=== PATIENT | male | born 1930 | race Caucasian/White ===

== ENCOUNTER 2019-03-11 13:59 | Inpatient (IN) ==
--- NOTE | 2019-03-11 14:25 | Emergency Department Note ---
Weakness HPI - General Chief complaint: Weakness Stated complaint: Weakness, Confusion Time Seen by Provider: 03/11/19 14:13 Source: patient Mode of arrival: wheelchair Limitations: altered mental status, physical limitation - History of Present Illness HPI Narrative: Mr. Boone is a an 88-year-old who lives at home with his who has had developing weakness and confusion over the last 3 days. He has not felt well for about a week. He frequently or generally sleeps in a chair and has done so for 20 years according to his son. Apparently some ulcers are developed on his buttocks that his significant other has been treating him and trying to take care of at home. Patient is not very active. Reportedly had 84% on room air when he first arrives in a blood pressure of 127/30. Temperature 99.9 degrees. Pulse 89. He does not see a doctor very often and so there is a lack of information or history. His significant other is not currently present who is his usual caregiver. REVIEW OF SYSTEMS: Patient is almost mute when asked questions. Occasionally is able to respond. He can make eye contact but stares quite a bit away and looks towards his [id number] and does not answer many questions. He is sleepy quite a bit of the time as well. - Related Data Home Medications Medication Instructions Recorded Confirmed No Known Home Meds 03/11/19 03/11/19 Allergies Allergy/AdvReac Type Severity Reaction Status Date / Time No Known Drug Allergies Allergy Unverified 03/11/19 14:03 Past Medical History - Past Medical History Medical history: Reports: TIA. Denies: asthma, cancer (but has had elevated PSA around 12.), CAD (coronary artery disease), chronic anticoagulation, chronic narcotics, COPD, CVA, DM, hyperlipidemia, hypertension, pneumonia, renal disease Psychiatric history: Denies: anxiety, depression - Social History smoking status: Never smoker Alcohol use: Reports: None (quit 2017.) Drug use: Reports: none. Denies: marijuana Physical Exam Limitations: altered mental status, physical limitation General appearance: lethargic, obese, obtunded, sleepy, other (Eyes open with speaking to him and he occasionally will obey commands but not always.) Head: atraumatic, normocephalic Eye: Present: EOMI Neck: Present: trachea midline. Absent: lymphadenopathy, thyromegaly Chest: Present: symmetric chest wall rise Respiratory: Present: normal lung sounds bilaterally, other (Some poor respiratory effort and decrease breath excursions.). Absent: respiratory distress, wheezes, stridor, accessory muscle use, prolonged expiratory phase Cardiovascular: Present: regular rate, normal rhythm, systolic murmur. Absent: diastolic murmur Type of murmur: systolic (Soft early) Intensity of murmur: 1/6 Pitch of murmur: Medium Abdominal: Present: soft. Absent: distention, tenderness, guarding, rebound, rigidity, organomegaly, mass Extremities: Absent: pedal edema, pretibial edema Neurological: Present: other (Moves upper and lower extremities but only occasionally. Moves eyes and face but slow and lethargic.) Psychiatric: Present: flat affect, serious, poor eye contact. Absent: agitated, anxious Skin: Present: warm, dry, other (He has gluteal hyperkeratotic changes with folds and verruciform/coliform irregularities in step-off levels in the upper medial or middle level buttocks near the intergluteal cleft. Below these he has stage II breakdown of the skin with a small to medium size, approximately 1 inch diameter on the left with granulation tissue. He has a larger one on the right estimated diameter 1 and three-quarter inch that appears more dry centrally and seems to be fairly uniform but somewhat depressed. No tunneling or exudate is noted. In the central intergluteal cleft midline there is some skin breakdown with slight moisture and pink maceration. On the lower buttocks to very proximal thigh is a small breakdown about nickel size in diameter.) Course Vital Signs Temperature 99.9 F H 03/11/19 13:59 Pulse Rate 89 03/11/19 13:59 Respiratory Rate 28 H 03/11/19 13:59 Blood Pressure 127/30 03/11/19 13:59 Pulse Oximetry (%) 84 L 03/11/19 13:59 Temperature 98.9 F 03/11/19 19:42 Pulse Rate 83 03/11/19 19:42 Respiratory Rate 19 03/11/19 19:42 Blood Pressure 131/58 03/11/19 19:42 Pulse Oximetry (%) 95 03/11/19 19:42 Weakness - MDM Narrative Medical decision making narrative: 2:18 PM - this gentleman comes in accompanied by and son and [id number]. ( is actually significant other of many years). Because of low-grade fever, aggressive weakness and confusion, a rather complete work-up is needed including labs, EKG, imaging of the chest and possibly of the brain. Blood cultures are being obtained and antibiotics are being started quickly as he has Q's of a positive risk factors as well as this history. Limited healthcare visits in the past making some paucity of information. He has a he art murmur that is mild at the systolic. With the fever and if this were unknown, some increased risk for subacute bacterial endocarditis. 3:35 PM - hemoglobin comes back at 6.9. Digital rectal exam reveals no masses or nodules that but there is a large bolus of firm stool. Hemoccult is negative . Sphincter tone is mildly decreased. 4:35 PM - chest x-ray shows cardiomegaly but no specific CHF, pleural effusion or infiltrate. Because of his persistent obtundation that is still somewhat explained, CT scan of the head ordered. 5 PM - Crisostomo catheter with probe was placed and there was blood in his urine. Urine analysis is still pending per Patient has been given Zosyn and vancomycin. Patient has received over has had Protonix 80 mg IV as a bolus. Of note also has stool retention that was quite significant on digital rectal exam. 5:10 PM - spoke with Dr. Jett, hospitalist, who kindly accepts this patient in transfer. I will seek to speak with Dr. Davis, general surgeon for upper GI. I will speak with family regarding his CODE STATUS. A festinating physical finding is rather darkening of the Annette of his proximal nailbeds of all of his nails. This darkening is quite black/charcoal metz but does not involve all of the nails. 5:55 PM - telephone call from radiologist reports that patient's CT of the head demonstrates a small to moderate-sized hydrocephalus with fairly well dilated lateral and third ventricles. Fourth ventricle is normal in size. Consider consultation with neurosurgeon. Call out to neurosurgical for consultation. 6:34 PM - I spoke with neuro surgeon, Dr. Qiu, who is reassuring that the hydrocephalus can be worked up as an outpatient and there is no urgency over the next week or 2 for that to be done. - Lab Data Lab results reviewed: Yes I reviewed the patient's lab results. Result diagrams: 03/11/19 14:23 03/11/19 14:23 Lab Results 03/11/19 03/11/19 03/11/19 Range/Units 14:23 14:23 14:23 WBC 16.6 H (4.5-11.0) K/mcL RBC 2.74 L (4.50-5.90) M/mcL Hgb 6.9 L* (13.5-16.5) g/dL Hct 23.0 L (41.0-55.0) % MCV 83.8 (80.0-100.0) fL MCH 25.2 L (26.0-34.0) pg MCHC 30.0 L (31.0-36.0) g/dL RDW 18.0 H (11.5-14.5) % Plt Count 616 H (140-440) K/mcL MPV 8.0 (7.4-10.4) fL Total Counted 100 Seg Neutrophils % 77 (38-78) % Band Neutrophils % Not Reportable Lymphocytes % 17 (15-49) % Monocytes % (Manual) 5 (1-12) % Basophils % (Manual) 1 (0-2) % Nucleated RBCs 1 H (0-0) % Platelet Estimate Increased A (NORMAL) RBC Morphology Abnorm A (NORMAL) Polychromasia 1+ A (NONE SEEN) Hypochromasia 1+ A (NONE SEEN) Basophilic Stippling 1+ A (NONE SEEN) Anisocytosis 1+ A (NONE SEEN) Target Cells 1+ A (NONE SEEN) Helmet Cells Few A (NONE SEEN) ESR (0-15) mm/hr VBG Lactic Acid 3.9 H (0.5-2.0) mmol/L Sodium 146 H (133-145) mmol/L Potassium 4.8 (3.3-5.1) mmol/L Chloride 102 (96-108) mmol/L Carbon Dioxide 28 (22-30) mmol/L Anion Gap 16.0 (8-16) BUN 40 H (8-23) mg/dl Creatinine 1.7 H (0.7-1.2) mg/dl GFR Calculation 36 Glucose 143 H (70-105) mg/dL Calcium 9.7 (8.6-10.4) mg/dl Total Bilirubin 0.3 (0.0-1.0) mg/dL AST 85 H (0-37) U/l ALT 26 (0-40) U/l Alkaline Phosphatase 77 (39-117) U/L C-Reactive Protein (0.0-0.8) mg/dl Total Protein 8.1 (5.9-8.4) gm/dL Albumin 3.3 (3.2-5.2) gm/dL Globulin 4.8 H (2.2-3.7) gm/dL Albumin/Globulin Ratio 0.7 L (1.0-2.3) Procalcitonin (<0.10) ng/mL Urine Color Urine Appearance Urine pH (5.0-9.0) Ur Specific [place] (1.000-1.035) Urine Protein (NEG) mg/dL Urine Glucose (UA) (NEG) mg/dL Urine Ketones (NEG) mg/dL Urine Occult Blood (<0.03) mg/dL Urine Nitrate (NEG) Urine Bilirubin (NEG) mg/dL Urine Urobilinogen (NEG) mg/dL Ur Leukocyte Esterase (NEG) /uL Urine RBC (0-1) /hpf Urine WBC (0-4) /hpf Ur Squamous Epith Cells (0-4) /hpf Ur Transition Epith Cell (0-2) /hpf Urine Bacteria (0) /hpf Hyaline Casts (0-2) /lpf Urine Mucus (0) /hpf Ur Culture Indicated? 03/11/19 03/11/19 03/11/19 Range/Units 14:23 14:23 14:23 WBC (4.5-11.0) K/mcL RBC (4.50-5.90) M/mcL Hgb (13.5-16.5) g/dL Hct (41.0-55.0) % MCV (80.0-100.0) fL MCH (26.0-34.0) pg MCHC (31.0-36.0) g/dL RDW (11.5-14.5) % Plt Count (140-440) K/mcL MPV (7.4-10.4) fL Total Counted Seg Neutrophils % (38-78) % Band Neutrophils % Lymphocytes % (15-49) % Monocytes % (Manual) (1-12) % Basophils % (Manual) (0-2) % Nucleated RBCs (0-0) % Platelet Estimate (NORMAL) RBC Morphology (NORMAL) Polychromasia (NONE SEEN) Hypochromasia (NONE SEEN) Basophilic Stippling (NONE SEEN) Anisocytosis (NONE SEEN) Target Cells (NONE SEEN) Helmet Cells (NONE SEEN) ESR > 120 H (0-15) mm/hr VBG Lactic Acid (0.5-2.0) mmol/L Sodium (133-145) mmol/L Potassium (3.3-5.1) mmol/L Chloride (96-108) mmol/L Carbon Dioxide (22-30) mmol/L Anion Gap (8-16) BUN (8-23) mg/dl Creatinine (0.7-1.2) mg/dl GFR Calculation Glucose (70-105) mg/dL Calcium (8.6-10.4) mg/dl Total Bilirubin (0.0-1.0) mg/dL AST (0-37) U/l ALT (0-40) U/l Alkaline Phosphatase (39-117) U/L C-Reactive Protein 6.2 H (0.0-0.8) mg/dl Total Protein (5.9-8.4) gm/dL Albumin (3.2-5.2) gm/dL Globulin (2.2-3.7) gm/dL Albumin/Globulin Ratio (1.0-2.3) Procalcitonin 6.61 (<0.10) ng/mL Urine Color Urine Appearance Urine pH (5.0-9.0) Ur Specific [place] (1.000-1.035) Urine Protein (NEG) mg/dL Urine Glucose (UA) (NEG) mg/dL Urine Ketones (NEG) mg/dL Urine Occult Blood (<0.03) mg/dL Urine Nitrate (NEG) Urine Bilirubin (NEG) mg/dL Urine Urobilinogen (NEG) mg/dL Ur Leukocyte Esterase (NEG) /uL Urine RBC (0-1) /hpf Urine WBC (0-4) /hpf Ur Squamous Epith Cells (0-4) /hpf Ur Transition Epith Cell (0-2) /hpf Urine Bacteria (0) /hpf Hyaline Casts (0-2) /lpf Urine Mucus (0) /hpf Ur Culture Indicated? 03/11/19 Range/Units 16:00 WBC (4.5-11.0) K/mcL RBC (4.50-5.90) M/mcL Hgb (13.5-16.5) g/dL Hct (41.0-55.0) % MCV (80.0-100.0) fL MCH (26.0-34.0) pg MCHC (31.0-36.0) g/dL RDW (11.5-14.5) % Plt Count (140-440) K/mcL MPV (7.4-10.4) fL Total Counted Seg Neutrophils % (38-78) % Band Neutrophils % Lymphocytes % (15-49) % Monocytes % (Manual) (1-12) % Basophils % (Manual) (0-2) % Nucleated RBCs (0-0) % Platelet Estimate (NORMAL) RBC Morphology (NORMAL) Polychromasia (NONE SEEN) Hypochromasia (NONE SEEN) Basophilic Stippling (NONE SEEN) Anisocytosis (NONE SEEN) Target Cells (NONE SEEN) Helmet Cells (NONE SEEN) ESR (0-15) mm/hr VBG Lactic Acid (0.5-2.0) mmol/L Sodium (133-145) mmol/L Potassium (3.3-5.1) mmol/L Chloride (96-108) mmol/L Carbon Dioxide (22-30) mmol/L Anion Gap (8-16) BUN (8-23) mg/dl Creatinine (0.7-1.2) mg/dl GFR Calculation Glucose (70-105) mg/dL Calcium (8.6-10.4) mg/dl Total Bilirubin (0.0-1.0) mg/dL AST (0-37) U/l ALT (0-40) U/l Alkaline Phosphatase (39-117) U/L C-Reactive Protein (0.0-0.8) mg/dl Total Protein (5.9-8.4) gm/dL Albumin (3.2-5.2) gm/dL Globulin (2.2-3.7) gm/dL Albumin/Globulin Ratio (1.0-2.3) Procalcitonin (<0.10) ng/mL Urine Color Yellow Urine Appearance Clear Urine pH 5.0 (5.0-9.0) Ur Specific [place] 1.019 (1.000-1.035) Urine Protein 30 A (NEG) mg/dL Urine Glucose (UA) Negative (NEG) mg/dL Urine Ketones Neg (NEG) mg/dL Urine Occult Blood 0.2 A (<0.03) mg/dL Urine Nitrate Neg (NEG) Urine Bilirubin Neg (NEG) mg/dL Urine Urobilinogen Neg (NEG) mg/dL Ur Leukocyte Esterase 25 A (NEG) /uL Urine RBC 147 H (0-1) /hpf Urine WBC 11 H (0-4) /hpf Ur Squamous Epith Cells 0 (0-4) /hpf Ur Transition Epith Cell < 1 (0-2) /hpf Urine Bacteria Mod A (0) /hpf Hyaline Casts 6 H (0-2) /lpf Urine Mucus Few (0) /hpf Ur Culture Indicated? Yes - Radiology Data Radiology results reviewed: Yes I reviewed the patient's radiology results. - EKG Data EKG results narrative: No acute coronary syndrome findings. This ECG will be read by a cloth mercerizing supervisor. Disposition Pt seen by SERVER PROGRAMMER/PA only: No Clinical Impression: Hypochromic microcytic anemia, Elevated LFTs, Obtundation Sepsis Qualifiers: Sepsis type: sepsis due to unspecified organism Qualified Code(s): A41.9 - Sepsis, unspecified organism Decubitus ulcers Qualifiers: Pressure injury location: sacral region Pressure injury stage: stage 2 Qualified Code(s): L89.152 - Pressure ulcer of sacral region, stage 2 Obesity Qualifiers: Obesity type: unspecified obesity type Obesity classification: adult class 1 (BMI 30 - 34.9) Serious obesity comorbidity presence: unspecified whether seriou s comorbidity present Body mass index: BMI 32.0-32.9 Qualified Code(s): E66.9 - Obesity, unspecified Acute renal failure (ARF) Qualifiers: Acute renal failure type: unspecified Qualified Code(s): N17.9 - Acute kidney failure, unspecified Hydrocephalus Qualifiers: Hydrocephalus type: unspecified Qualified Code(s): G91.9 - Hydrocephalus, unspecified Disposition: Xfer As Inpt ([facility]) Condition: Serious
[2019-03-11] MEDS ORDERED: PIPERACILLIN SODIUM/TAZOBACTAM 3.375 GM in DEXTROSE 5% IN WATER 50 ML IV ONE (14:36)
[2019-03-11] MEDS ORDERED: 0.9 % SODIUM CHLORIDE 1,000 ML IV ONE ×2 (14:36→15:30)
--- NOTE | 2019-03-11 15:07 | XRay Report ---
HISTORY: Increased weakness and confusion FINDINGS: The heart is moderately enlarged but magnified by portable AP technique. There may be bands of atelectasis in both lung bases. There is no congestive heart failure or pleural effusion. No prior study is available for comparison. Mild arthritis is present in both shoulders and the thoracic spine. IMPRESSION: Cardiomegaly Interpreted and Authenticated by: Albert Wilson 03/11/19
[2019-03-11 15:34] LABS: Hemoglobin 6.9 g/dL (13.5-16.5); Mean Cell Volume 83.8 fL (80.0-100.0); Platelet Count 616 K/mcL (140-440); RBC 2.74 M/mcL (4.50-5.90); WBC 16.6 K/mcL (4.5-11.0)
[2019-03-11 15:35] LABS: ALT/SGPT 26 U/l (0-40); AST/SGOT 85 U/l (0-37); Albumin 3.3 gm/dL (3.2-5.2); Albumin/Globulin Ratio 0.7 (1.0-2.3); Alkaline Phosphatase 77 U/L (39-117); Bilirubin,Total 0.3 mg/dL (0.0-1.0); Blood Urea Nitrogen 40 mg/dl (8-23); Calcium 9.7 mg/dl (8.6-10.4); Carbon Dioxide 28 mmol/L (22-30); Chloride 102 mmol/L (96-108); Globulin 4.8 gm/dL (2.2-3.7); Glomerular Filtration Rate 36; Glucose 143 mg/dL (70-105); Potassium 4.8 mmol/L (3.3-5.1); Sodium 146 mmol/L (133-145)
[2019-03-11] MEDS ORDERED: VANCOMYCIN 1,000 MG in 0.9 % SODIUM CHLORIDE 250 ML IV ONE (15:44)
[2019-03-11] MEDS ORDERED: PANTOPRAZOLE 40 MG VIAL IV ONE (15:44)
[2019-03-11] MEDS ORDERED: 0.9 % SODIUM CHLORIDE 250 ML IV SCH (15:45)
[2019-03-11 16:00] LABS: Anisocytosis 1+ (NONE SEEN); Basophilic Stippling 1+ (NONE SEEN); Basophils % (Manual) 1 % (0-2); Helmet Cells FEW (NONE SEEN); Hypochromasia 1+ (NONE SEEN); Lymphocytes % 17 % (15-49); Monocytes % (Manual) 5 % (1-12); Nucleated Red Blood Cells 1 % (0-0); Platelet Estimate INCREASED (NORMAL); Polychromasia 1+ (NONE SEEN); RBC Morphology ABNORM (NORMAL); Segmented Neutrophils % 77 % (38-78); Target Cells 1+ (NONE SEEN)
[2019-03-11 16:57] LABS: Appearance,Urine CLEAR; Bacteria,Urine MOD /hpf (0); Bilirubin,Urine NEG (NEG); Color,Urine YELLOW; Culture Indicated,Urine YES; Glucose,Urine (UA) NEGATIVE (NEG); Ketones,Urine NEG (NEG); Leukocyte Esterase,Urine 25 /uL (NEG); Mucus,Urine FEW /hpf (0); Nitrate,Urine NEG (NEG); Protein,Urine 30 mg/dL (NEG); Specific Gravity,Urine 1.019 (1.000-1.035); Urine Blood 0.2 mg/dL (<0.03); Urine Hyaline Cast 6 /lpf (0-2); Urine RBC 147 /hpf (0-1); Urine Squamous Epithelial Cell 0 /hpf (0-4); Urine Transitional Epi Cells < 1 /hpf (0-2); Urine WBC 11 /hpf (0-4); Urobilinogen,Urine NEG (NEG)
--- NOTE | 2019-03-11 18:00 | Cat Scan Report ---
History: Obtunded and confused with peripheral weakness TECHNIQUE: The brain was imaged without contrast at 2.5 mm intervals. The radiation exposure was limited using dose reduction technology. FINDINGS: There is generalized cerebral atrophy with the greatest involvement in the frontal and temporal lobes. There is mild to moderate dilatation of the lateral and third ventricles. Fourth ventricle is normal in size. The ventricular dilatation is out of proportion to the atrophy. There is no transependymal reabsorption of CSF. There is no evidence of an infarct, hemorrhage or mass. No abnormal extra-axial fluid collection is present. IMPRESSION: Mild to moderate hydrocephalus which is out of proportion to the underlying cerebral atrophy. Dr. Gayle was called with the results Interpreted and Authenticated by: Albert Wilson 03/11/19
[2019-03-11] MEDS ORDERED: POTASSIUM CHLORIDE 20 MEQ PACKET PO PRN (19:43)
[2019-03-11] MEDS ORDERED: VANCOMYCIN PER PHARMACY IV SCH (19:43)
[2019-03-11] MEDS ORDERED: MAGNESIUM SULFATE 2 GM/50 ML BAG IV PRN (19:43)
[2019-03-11] MEDS ORDERED: ONDANSETRON 4 MG/2 ML VIAL IV PRN (19:43)
[2019-03-11] MEDS ORDERED: ACETAMINOPHEN 325 MG TABLET PO PRN (19:43)
--- NOTE | 2019-03-11 19:44 | Cat Scan Report ---
History: Abdominal distention, cardiomegaly, weakness and prostate cancer TECHNIQUE: The patient was imaged without oral or intravenous contrast from the thoracic inlet through the symphysis pubis. Sagittal and coronal reformats were created along with axial MIPS images of the chest. The radiation exposure was limited using dose reduction technology. CHEST: There are multiple small noncalcified pulmonary nodules in both lungs. The largest is located anteriorly left upper lobe and measures 6 mm. This is seen on axial image #43. There are bands of consolidated lung parenchyma centrally in the right upper lobe and in the lung bases. As may be atelectasis or scar. There are tiny bilateral layering pleural effusions. The heart is moderately enlarged. There are few scattered plaques in the coronary arteries are densely calcified plaques are present along the wall of normal caliber thoracic aorta. Abdomen and pelvis: Evaluation of the abdominal organs without contrast is limited. The liver appears normal in size and homogeneous. There are multiple splenules in the left upper quadrant. 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 The largest measures 3.4 cm. The gallbladder and bile ducts are normal. There is no evidence of a mass or inflammation the pancreas. The adrenals are normal and symmetric. There is a 5 x 6 cm exophytic simple cyst laterally in the upper pole of left kidney. A nonobstructing 2 x 3 mm stone is present in the lower pole calyx of the right kidney. There is no hydronephrosis in either kidney. There are pathologically enlarged lymph nodes in the retroperitoneum. Largest are located anterior to the inferior vena cava and measure up to 4 cm in size. Patient also has diffuse blastic bone metastasis replacing the body of L3. Small blastic lesions are present in the L2 vertebra. There is a Crisostomo catheter in the bladder. No discrete tumor is seen in the remaining portion of the prostate. There is circumferential thickening of the wall of the bladder. It measures up to 2.1 cm. The bowel pattern is normal without evidence of bowel obstruction. There is no ascites. 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 This could be due to chronic bladder outlet obstruction or transitional cell carcinoma. Several small pulmonary metastasis. Bands of atelectasis in both lungs Moderate cardiomegaly Dr. Jett was called with the results Interpreted and Authenticated by: Albert Wilson 03/11/19
[2019-03-11] MEDS: 0.9 % SODIUM CHLORIDE 1,000 ML IV SCH (20:35)
--- NOTE | 2019-03-11 20:44 | Internal Med History&Physical ---
Medical - H&P: HPI Patient information: Note initiated : 03/11/19 at 8:40 pm Service Date, if different from initiated Date: [] Patient: Gamal Boone a 88 y/o M admitted on 03/11/19 for Weakness, Confusion. Chief Complaint: [] Chief complaint: confusion, weakness History of present illness: Mr. Boone is a 88 year old M with a history of coronary artery disease/prostate cancer, CVA and COPD who presents to the ER with increasing weakness, confusion that has progressed over the last 3 days. Patient lives with his live-in partner Maile and son Henry was able to provide more information as he was brought in obtunded state. Patient associated low-grade fever but family denies productive cough, projectile vomiting, diarrhea. Endorses to bloody urine. He also has developed pressures sore on his bottom with the last few month. He has had significant loss of appetite and has been laying in bed lethargic and confused over the last 24 hours. Patient is arousable but unable to converse. Initial workup in the ER was consistent with hydrocephalus on CT had along with extensive metastatic disease involving lung, L2-L3 vertebrae and retroperitoneal lymph node of unknown primary. Elevated pro-calcitonin/white count/pyuria consistent with sepsis. Patient was started on broad antibiotic coverage. Subsequently hospitalist service consulted At the time of evaluation patient is fatigued and lethargic. Unable to provide history. Most of the history was obtained from patient's son Henry Boone, ER physician and medical records. Review of systems 10 point review of system was performed and is negative except as discussed above Medical - H&P: PMH Medical history: History of CVA COPD Prostate cancer CAD Chronic pain on narcotics DM type II Hyperlipidemia Hypertension Chronic kidney disease unknown stage Family history: reviewed and not pertinent Pertinent family history: Lives with his daughter Elizabeth cell phone [phone] Living partner aMile Son Henry Boone POA can be reached at [phone] Social history: Quit alcohol 17 No history of smoking Medical - H&P: Meds Home Medications Medication Instructions Recorded Confirmed Type No Known Home Meds 03/11/19 03/11/19 History Allergies Allergy/AdvReac Type Severity Reaction Status Date / Time No Known Drug Allergies Allergy Unverified 03/11/19 14:03 Medical - H&P: Exam - Constitutional Vitals: Temp Pulse Resp BP Pulse Ox 98.9 F 83 19 131/58 95 03/11/19 19:42 03/11/19 19:42 03/11/19 19:42 03/11/19 19:42 03/11/19 19:42 General appearance: average body habitus Exam: Obtunded, GCS 8 Head normocephalic No sclerae icterus, conjunctival pallor Oral cavity dry No ear discharge Irregular rhythm with bradycardia Diminished breath sounds bases Abdomen distended Lower extremity no cyanosis clubbing, lymphedema noted Decubitus ulcer buttocks-pictures ented in the chart Confused Neuro could not be examined Medical - H&P: Reslt - Labs CBC & Chem 7: 03/12/19 03:50 03/12/19 03:50 Labs: Short CBC 03/11/19 Range/Units 14:23 WBC 16.6 H (4.5-11.0) K/mcL Hgb 6.9 L* (13.5-16.5) g/dL Hct 23.0 L (41.0-55.0) % Plt Count 616 H (140-440) K/mcL BMP 03/11/19 14:23 Sodium 146 H Potassium 4.8 Chloride 102 Carbon Dioxide 28 BUN 40 H Creatinine 1.7 H Glucose 143 H Calcium 9.7 Liver Function 03/11/19 Range/Units 14:23 Total Bilirubin 0.3 (0.0-1.0) mg/dL AST 85 H (0-37) U/l ALT 26 (0-40) U/l Alkaline Phosphatase 77 (39-117) U/L Albumin 3.3 (3.2-5.2) gm/dL Urine 03/11/19 Range/Units 16:00 Urine Color Yellow Urine Appearance Clear Urine pH 5.0 (5.0-9.0) Ur Specific [place] 1.019 (1.000-1.035) Urine Protein 30 A (NEG) mg/dL Urine Glucose (UA) Negative (NEG) mg/dL Medical - H&P: A/P (1) Change in mental status Current visit: Yes Status: Acute * Acute change in mental status-secondary to sepsis end organ dysfunction/hydrocephalus * Sepsis-continue management per guidelines with orozco cultures, lactate trending, broad antibiotics and pressors if indicated * Complicated UTI-broad antibiotic coverage. De-escalate based on culture sensitivities * Decubitus ulcer likely source for sepsis. Continue wound care/offloading. Pictures documented in chart. 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 Currently on monitoring manager, atropine if symptomatic * Moderate hydrocephalus-neurosurgery recommends follow-up as outpatient on discharge is no acute intervention indicated * Acute blood loss anemia-IV PPI/2 units PRBC transfusion/surgery consult for endoscopy. Serial hemoglobin * Acute on chronic kidney failure-avoid nephrotoxins/monitor creatinine. Likely secondary to sepsis end organ dysfunction * Metastatic cancer of unknown etiology * History of prostate cancer * Prophylaxis heparin * DNR Plan * Inpatient admission. Anticipate minimum 2 midnight hospitalization * Close hemodynamic monitoring * Broad antibiotic coverage * PPI/2 units PRBC/hemoglobin * Monitor renal function * Pre-existing medical condition management on home meds
[2019-03-11] MEDS: HEPARIN 5,000 UNIT/ML VIAL SQ SCH (22:46)
[2019-03-11] MEDS: SENNOSIDES/DOCUSATE SODIUM 1 TAB TABLET PO SCH (22:47)
[2019-03-11] MEDS: DOCUSATE SODIUM 100 MG CAPSULE PO SCH (22:47)
[2019-03-11] MEDS: 0.9 % SODIUM CHLORIDE 10 ML SYRINGE IV SCH (22:48)
[2019-03-11] MEDS: PIPERACILLIN SODIUM/TAZOBACTAM 3.375 GM in DEXTROSE 5% IN WATER 50 ML IV SCH (23:58)
[2019-03-12] MEDS: ACETAMINOPHEN 1,000 MG/100 ML BOTTLE IV PRN ×2 (03:22→22:52)
[2019-03-12] MEDS: PIPERACILLIN SODIUM/TAZOBACTAM 3.375 GM in DEXTROSE 5% IN WATER 50 ML IV SCH ×3 (05:56→17:59)
[2019-03-12] MEDS: 0.9 % SODIUM CHLORIDE 10 ML SYRINGE IV SCH ×3 (05:57→22:49)
[2019-03-12 06:28] LABS: ALT/SGPT 25 U/l (0-40); AST/SGOT 87 U/l (0-37); Albumin 2.6 gm/dL (3.2-5.2); Albumin/Globulin Ratio 0.5 (1.0-2.3); Alkaline Phosphatase 73 U/L (39-117); Bilirubin,Direct < 0.2 mg/dL (0.0-0.3); Bilirubin,Total 0.4 mg/dL (0.0-1.0); Blood Urea Nitrogen 32 mg/dl (8-23); Calcium 8.8 mg/dl (8.6-10.4); Carbon Dioxide 22 mmol/L (22-30); Chloride 107 mmol/L (96-108); Gamma Glutamyl Transpeptidase 61 U/L (8-61); Glomerular Filtration Rate 38; Glucose 88 mg/dL (70-105); Lactate Dehydrogenase 474 U/L (94-250); Magnesium 2.7 mg/dL (1.6-2.5); Phosphorous 5.6 mg/dL (2.7-4.5); Potassium 5.6 mmol/L (3.3-5.1); Sodium 144 mmol/L (133-145); Triglycerides 140 mg/dl (<150); Uric Acid 7.9 mg/dL (2.5-8.0)
[2019-03-12 06:43] LABS: Hematocrit 28.9 % (41.0-55.0); Hemoglobin 8.9 g/dL (13.5-16.5); Mean Platelet Volume 8.2 fL (7.4-10.4); Platelet Count 507 K/mcL (140-440); RBC 3.36 M/mcL (4.50-5.90); Red Cell Distribution Width 17.3 % (11.5-14.5); WBC 17.3 K/mcL (4.5-11.0)
[2019-03-12 09:14] LABS: Anisocytosis 1+ (NONE SEEN); Eosinophils % (Manual) 1 % (0-7); Lymphocytes % 23 % (15-49); Monocytes % (Manual) 6 % (1-12); Nucleated Red Blood Cells 2 % (0-0); Platelet Estimate INCREASED (NORMAL); Polychromasia 1+ (NONE SEEN); RBC Morphology ABNORM (NORMAL); Rouleaux PRESENT (NONE SEEN); Segmented Neutrophils % 70 % (38-78)
[2019-03-12] MEDS: VANCOMYCIN 1,500 MG in 0.9 % SODIUM CHLORIDE 500 ML IV SCH (10:00)
[2019-03-12] MEDS: HEPARIN 5,000 UNIT/ML VIAL SQ SCH ×2 (11:07→22:53)
[2019-03-12] MEDS: DOCUSATE SODIUM 100 MG CAPSULE PO SCH ×2 (11:07→22:49)
--- NOTE | 2019-03-12 11:50 | Internal Med Progress Note ---
Medical - PN: Subj Patient information: Note initiated : 03/12/19 at 11:47 am Service Date, if different from initiated Date: [] Patient: Gamal Boone a 88 y/o M admitted on 03/11/19 for Weakness, Confusion. Chief Complaint: [] Interval history: Mr. Boone is a 88 year old M with a history of coronary artery disease/prostate cancer, CVA and COPD who presents to the ER with increasing weakness, confusion that has progressed over the last 3 days. Patient lives with his live-in partner Maile and son Henry was able to provide more information as he was brought in obtunded state. Patient associated low-grade fever but family denies productive cough, projectile vomiting, diarrhea. Endorses to bloody urine. He also has developed pressures sore on his bottom with the last few month. He has had significant loss of appetite and has been laying in bed lethargic and confused over the last 24 hours. Patient is arousable but unable to converse. Initial workup in the ER was consistent with hydrocephalus on CT had along with extensive metastatic disease involving lung, L2-L3 vertebrae and retroperitoneal lymph node of unknown primary. Elevated pro-calcitonin/white count/pyuria consistent with sepsis. Patient was started on broad antibiotic coverage. Subsequently hospitalist service consulted At the time of evaluation patient is fatigued and lethargic. Unable to provide history. Most of the history was obtained from patient's son Henry Boone, ER physician and medical records. 03/12-patient with pains obtunded. No responsive. No telemetry events except for occasional bradycardia. Son Henry and live-in partner Maile expresses desire to transition to comfort care for end-of-life care after reviewing patient's clinical status. Await decision. White count worsening and 17.3. He will need 0.9 status post 2 units blood transfusion. Family refuses upper endoscopy on aggressive interventions. Potassium 5.6. On antibiotic coverage. Patient critically ill with high risk mortality in the setting of metastatic cancer/decubitus ulcer/sepsis. Family aware aware of grim prognosis. - Constitutional Vitals: Vital Signs Temp Pulse Resp BP Pulse Ox 98.3 F 76 26 H 128/54 96 03/12/19 08:02 03/12/19 08:02 03/12/19 08:02 03/12/19 08:02 03/12/19 08:02 Period Temp Pulse Resp BP Sys/Patel Pulse Ox Last 24 Hr 98.1 F-99.9 F 37-93 7-46 93-184/30-161 84-100 Intake and Output 03/11/19 03/12/19 03/12/19 21:59 05:59 13:59 Intake Total 2300 50 50 Output Total 900 350 Balance 1400 -300 50 Weight 218 lb 8 oz Intake & Output: Intake & Output 03/11/19 03/12/19 03/12/19 21:59 05:59 13:59 Intake Total 2300 50 50 Output Total 900 350 Balance 1400 -300 50 Weight 218 lb 8 oz Intake: IV 2300 50 50 Sodium Chloride 0.9% 1,000 ml @ 2000 Wide Open IV BOLUS ONE Rx#: [id number] Zosyn 3.375 gm In Dextrose 5% 50 50 50 in Water 50 ml @ 100 mls/hr IV Q6H [facility] Rx#:[id number] Vancomycin 1,000 mg In Sodium 250 Chloride 0.9% 250 ml @ 250 mls/ hr IV ONCE ONE Rx#:[id number] Output: Urine Catheter Amount 350 Void Amount 900 Temp-Probe Crisostomo 900 Other: Urine Appearance Small Blood Clots Temp-Probe Crisostomo Hematuria Clear Large Blood Clots Hematuria Small Blood Clots Urine Color Dark Yellow Temp-Probe Crisostomo Straw Bright Yellow General appearance: no acute distress Exam: Remains obtunded Telemetry tachybradycardia regular rhythm Diminished breath sounds bases No lymphedema Medical - PN: Obj Da - Labs CBC & Chem 7: 03/12/19 03:50 03/12/19 03:50 Labs: Abnormal Lab Results 03/12/19 03/12/19 03/11/19 03:50 03:50 16:00 WBC 17.3 H RBC 3.36 L Hgb 8.9 L Hct 28.9 L MCH MCHC RDW 17.3 H Plt Count 507 H Nucleated RBCs 2 H Platelet Estimate Increased A RBC Morphology Abnorm A Polychromasia 1+ A Hypochromasia Basophilic Stippling Anisocytosis 1+ A Target Cells Helmet Cells Rouleaux Present A ESR VBG Lactic Acid Sodium Potassium 5.6 H BUN 32 H Creatinine 1.6 H Glucose Phosphorus 5.6 H Magnesium 2.7 H AST 87 H Lactate Dehydrogenase 474 H C-Reactive Protein Albumin 2.6 L Globulin 5.0 H Albumin/Globulin Ratio 0.5 L Urine Protein 30 A Urine Occult Blood 0.2 A Ur Leukocyte Esterase 25 A Urine RBC 147 H Urine WBC 11 H Urine Bacteria Mod A Hyaline Casts 6 H 03/11/19 03/11/19 03/11/19 14:23 14:23 14:23 WBC RBC Hgb Hct MCH MCHC RDW Plt Count Nucleated RBCs Platelet Estimate RBC Morphology Polychromasia Hypochromasia Basophilic Stippling Anisocytosis Target Cells Helmet Cells Rouleaux ESR > 120 H VBG Lactic Acid 3.9 H Sodium Potassium BUN Creatinine Glucose Phosphorus Magnesium AST Lactate Dehydrogenase C-Reactive Protein 6.2 H Albumin Globulin Albumin/Globulin Ratio Urine Protein Urine Occult Blood Ur Leukocyte Esterase Urine RBC Urine WBC Urine Bacteria Hyaline Casts 03/11/19 03/11/19 14:23 14:23 WBC 16.6 H RBC 2.74 L Hgb 6.9 L* Hct 23.0 L MCH 25.2 L MCHC 30.0 L RDW 18.0 H Plt Count 616 H Nucleated RBCs 1 H Platelet Estimate Increased A RBC Morphology Abnorm A Polychromasia 1+ A Hypochromasia 1+ A Basophilic Stippling 1+ A Anisocytosis 1+ A Target Cells 1+ A Helmet Cells Few A Rouleaux ESR VBG Lactic Acid Sodium 146 H Potassium BUN 40 H Creatinine 1.7 H Glucose 143 H Phosphorus Magnesium AST 85 H Lactate Dehydrogenase C-Reactive Protein Albumin Globulin 4.8 H Albumin/Globulin Ratio 0.7 L Urine Protein Urine Occult Blood Ur Leukocyte Esterase Urine RBC Urine WBC Urine Bacteria Hyaline Casts Meds: Medications Acetaminophen (Tylenol) 650 mg PO Q4-6HP PRN PRN Reason: PAIN/FEVER > 101 Docusate Sodium (Colace) 100 mg PO BID [facility] Last Admin: 03/12/19 11:07 Dose: Not Given Documented by: Heparin Sodium (Porcine) (Heparin) 5,000 unit SQ Q12 [facility] Last Admin: 03/12/19 11:07 Dose: 5,000 unit Documented by: Magnesium Sulfate (Magnesium Sulfate) 2 gm in 50 mls @ 50 mls/hr IV UD PRN PRN Reason: MG = or < 1.7 Sodium Chloride (Sodium Chloride 0.9%) 1,000 mls @ 50 mls/hr IV .Q20H [facility] Stop: 03/14/19 07:42 Last Admin: 03/11/19 20:35 Dose: 50 mls/hr Documented by: Acetaminophen (Ofirmev) 1,000 mg in 100 mls @ 200 mls/hr IV Q6HP PRN PRN Reason: PAIN/FEVER > 101 Last Admin: 03/12/19 03:22 Dose: 200 mls/hr Documented by: Piperacillin Sod/Tazobactam (Sod 3.375 gm/ Dextrose) 50 mls @ 100 mls/hr IV Q6H ED; Protocol Last Infusion: 03/12/19 11:11 Dose: Infused Documented by: Vancomycin HCl 1,500 mg/ (Sodium Chloride) 500 mls @ 333.3 mls/hr IV Q24H ED Ondansetron HCl (Zofran) 4 mg IV Q4-6HP PRN PRN Reason: Nausea And Vomiting Potassium Chloride (Klor-Con) 40 meq PO DAILYP PRN PRN Reason: K+ < 3.5 Senna/Docusate Sodium (Senna Plus Tablet) 1 tab PO HS [facility] Last Admin: 03/11/19 22:47 Dose: Not Given Documented by: Sodium Chloride (Saline Flush) 10 ml IV Q8 ED Last Admin: 03/12/19 05:57 Dose: Not Given Documented by: Vancomycin HCl (Vancomycin Per Pharmacy) 1 order IV UD [facility]; Protocol Medical - PN: A/P - Time Spent With Patient Total time spent is greater than 50% in coordination of care (as documented) at patient's floor/unit and/or counseling patient: 25 - 35 minutes (1) Change in mental status Status: Acute Assessment and plan: * Acute change in mental status-patient remains obtunded with no significant improvement. Underlying hydrocephalus/sepsis end organ manifestation. * Sepsis-worsening leukocytosis at 17,300 likely source dangerous also/UTI. Continue antibiotic coverage. * Complicated UTI- on antibiotic coverage * Decubitus ulcer -Continue wound care/offloading. Pictures documented in chart. * Acute blood loss anemia-continue IV PPI/hemoglobin 8.9 status post 2 units PRBC transfusion/family refusing endoscopy evaluation. Discontinue serial hemoglobin * Tachybradycardia syndrome-patient POA son wants DNR. Currently on surveillance system monitor, atropine if symptomatic * Hydrocephalus-neurosurgery recommends follow-up as outpatient on discharge is no acute intervention indicated * Acute on chronic kidney failure-avoid nephrotoxins/monitor creatinine. Likely secondary to sepsis end organ dysfunction * Metastatic cancer of unknown etiology * History of prostate cancer * Prophylaxis heparin * DNR Plan * Await family recommendations for transition to comfort care * Continue antibiotic coverage * Wound care/offloadingn * Pre-existing medical condition management on home meds * Case management to coordinate SNF transfer for end of life care Current Visit: Yes
[2019-03-12] MEDS: 0.9 % SODIUM CHLORIDE 1,000 ML IV SCH (15:53)
[2019-03-12] MEDS: SENNOSIDES/DOCUSATE SODIUM 1 TAB TABLET PO SCH (22:49)
[2019-03-13] MEDS: PIPERACILLIN SODIUM/TAZOBACTAM 3.375 GM in DEXTROSE 5% IN WATER 50 ML IV SCH ×3 (00:31→14:35)
[2019-03-13] MEDS: 0.9 % SODIUM CHLORIDE 10 ML SYRINGE IV SCH (05:52)
[2019-03-13 06:40] LABS: Hematocrit 31.6 % (41.0-55.0); Hemoglobin 9.7 g/dL (13.5-16.5); Mean Cell Volume 86.9 fL (80.0-100.0); Mean Corpuscular HGB Conc 30.7 g/dL (31.0-36.0); Mean Platelet Volume 8.7 fL (7.4-10.4); Platelet Count 509 K/mcL (140-440); RBC 3.64 M/mcL (4.50-5.90); Red Cell Distribution Width 16.9 % (11.5-14.5); WBC 19.4 K/mcL (4.5-11.0)
[2019-03-13] MEDS: DOCUSATE SODIUM 100 MG CAPSULE PO SCH (07:10)
[2019-03-13 07:11] LABS: ALT/SGPT 23 U/l (0-40); AST/SGOT 60 U/l (0-37); Albumin 2.9 gm/dL (3.2-5.2); Albumin/Globulin Ratio 0.6 (1.0-2.3); Alkaline Phosphatase 75 U/L (39-117); Bilirubin,Direct < 0.2 mg/dL (0.0-0.3); Bilirubin,Total 0.3 mg/dL (0.0-1.0); Blood Urea Nitrogen 29 mg/dl (8-23); Calcium 8.5 mg/dl (8.6-10.4); Carbon Dioxide 23 mmol/L (22-30); Chloride 110 mmol/L (96-108); Gamma Glutamyl Transpeptidase 70 U/L (8-61); Globulin 5.1 gm/dL (2.2-3.7); Glomerular Filtration Rate 33; Glucose 66 mg/dL (70-105); Lactate Dehydrogenase 384 U/L (94-250); Magnesium 2.8 mg/dL (1.6-2.5); Sodium 150 mmol/L (133-145); Triglycerides 148 mg/dl (<150); Uric Acid 8.1 mg/dL (2.5-8.0)
[2019-03-13 07:53] LABS: Anisocytosis 1+ (NONE SEEN); Hypochromasia 1+ (NONE SEEN); Lymphocytes % 32 % (15-49); Monocytes % (Manual) 9 % (1-12); Nucleated Red Blood Cells 3 % (0-0); Platelet Estimate INCREASED (NORMAL); Poikilocytosis 1+ (NONE SEEN); RBC Morphology ABNORM (NORMAL); Segmented Neutrophils % 59 % (38-78)
[2019-03-13] MEDS ORDERED: DEXTROSE 5%-1/2NS 1,000 ML IV SCH (08:30)
[2019-03-13] MEDS: VANCOMYCIN 1,500 MG in 0.9 % SODIUM CHLORIDE 500 ML IV SCH (10:00)
[2019-03-13] MEDS: HEPARIN 5,000 UNIT/ML VIAL SQ SCH (10:07)
--- NOTE | 2019-03-13 11:14 | Internal Med Progress Note ---
Medical - PN: Subj Patient information: Note initiated : 03/13/19 at 11:11 am Service Date, if different from initiated Date: [] Patient: Gamal Boone a 88 y/o M admitted on 03/11/19 for Weakness, Confusion. Chief Complaint: [] Interval history: Mr. Boone is a 88 year old M with a history of coronary artery disease/prostate cancer, CVA and COPD who presents to the ER with increasing weakness, confusion that has progressed over the last 3 days. Patient lives with his live-in partner Maile and son Henry was able to provide more information as he was brought in obtunded state. Patient associated low-grade fever but family denies productive cough, projectile vomiting, diarrhea. Endorses to bloody urine. He also has developed pressures sore on his bottom with the last few month. He has had significant loss of appetite and has been laying in bed lethargic and confused over the last 24 hours. Patient is arousable but unable to converse. Initial workup in the ER was consistent with hydrocephalus on CT had along with extensive metastatic disease involving lung, L2-L3 vertebrae and retroperitoneal lymph node of unknown primary. Elevated pro-calcitonin/white count/pyuria consistent with sepsis. Patient was started on broad antibiotic coverage. Subsequently hospitalist service consulted At the time of evaluation patient is fatigued and lethargic. Unable to provide history. Most of the history was obtained from patient's son Henry Boone, ER physician and medical records. 03/12-patient with pains obtunded. No responsive. No telemetry events except for occasional bradycardia. Son Henry and live-in partner Maile expresses desire to transition to comfort care for end-of-life care after reviewing patient's clinical status. Await decision. White count worsening and 17.3. He will need 0.9 status post 2 units blood transfusion. Family refuses upper endoscopy on aggressive interventions. Potassium 5.6. On antibiotic coverage. Patient critically ill with high risk mortality in the setting of metastatic cancer/decubitus ulcer/sepsis. Family aware aware of grim prognosis. 03/13- patient remains critically ill. Worsening leukocytosis. Mental status remains obtunded. White count 19.4. Hemoglobin 9.7, sodium 150. Multiple family discussions over the last 48 hours. Family contemplating hospice. Await final decision. Overall prognosis is extremely poor in the setting of me tastatic cancer, severe sepsis with hypoxic respiratory failure, infected stage III decubitus ulcer and other multiple comorbidities. Family aware and understanding of patient's status. No overnight fever chills. Remains unresponsive - Constitutional Vitals: Vital Signs Temp Pulse Resp BP Pulse Ox 99.0 F 80 11 L 141/44 94 03/13/19 04:01 03/13/19 04:01 03/13/19 02:01 03/13/19 04:01 03/13/19 04:01 Period Temp Pulse Resp BP Sys/Patel Pulse Ox Last 24 Hr 98.9 F-100.2 F 80-87 0-34 107-141/38-98 90-99 Intake and Output 03/12/19 03/13/19 03/13/19 21:59 05:59 13:59 Intake Total 965 850 Output Total 700 950 Balance 265 -100 Weight 213 lb 3.2 oz Intake & Output: Intake & Output 03/12/19 03/13/19 03/13/19 21:59 05:59 13:59 Intake Total 965 850 Output Total 700 950 Balance 265 -100 Weight 213 lb 3.2 oz Intake: IV 965 850 Sodium Chloride 0.9% 1,000 ml @ 965 50 mls/hr IV .Q20H ED Rx#: [id number] Zosyn 3.375 gm In Dextrose 5% 150 in Water 50 ml @ 100 mls/hr IV Q6H ED Rx#:[id number] Vancomycin 1,500 mg In Sodium 500 Chloride 0.9% 500 ml @ 333.3 mls/hr IV Q24H ED Rx#: [id number] Output: Urine Catheter Amount 700 950 Other: Urine Appearance Sediment Temp-Probe Crisostomo Cloudy Urine Color Temp-Probe Crisostomo Straw General appearance: no acute distress Exam: Unresponsive state No telemetry events Foleys draining cloudy urine Stage III pressure ulcer On 2 L oxygen Medical - PN: Obj Da - Labs CBC & Chem 7: 03/13/19 03:35 03/13/19 03:35 Labs: Abnormal Lab Results 03/13/19 03/13/19 03/12/19 03:35 03:35 03:50 WBC 19.4 H RBC 3.64 L Hgb 9.7 L Hct 31.6 L MCH MCHC 30.7 L RDW 16.9 H Plt Count 509 H Nucleated RBCs 3 H Platelet Estimate Increased A RBC Morphology Abnorm A Polychromasia Hypochromasia 1+ A Poikilocytosis 1+ A Basophilic Stippling Anisocytosis 1+ A Target Cells Helmet Cells Rouleaux ESR VBG Lactic Acid Sodium 150 H Potassium 5.6 H Chloride 110 H Anion Gap 17.0 H BUN 29 H 32 H Creatinine 1.8 H 1.6 H Glucose 66 L Uric Acid 8.1 H Calcium 8.5 L Phosphorus 5.0 H 5.6 H Magnesium 2.8 H 2.7 H GGT 70 H AST 60 H 87 H Lactate Dehydrogenase 384 H 474 H C-Reactive Protein Albumin 2.9 L 2.6 L Globulin 5.1 H 5.0 H Albumin/Globulin Ratio 0.6 L 0.5 L Urine Protein Urine Occult Blood Ur Leukocyte Esterase Urine RBC Urine WBC Urine Bacteria Hyaline Casts 03/12/19 03/11/19 03/11/19 03:50 16:00 14:23 WBC 17.3 H RBC 3.36 L Hgb 8.9 L Hct 28.9 L MCH MCHC RDW 17.3 H Plt Count 507 H Nucleated RBCs 2 H Platelet Estimate Increased A RBC Morphology Abnorm A Polychromasia 1+ A Hypochromasia Poikilocytosis Basophilic Stippling Anisocytosis 1+ A Target Cells Helmet Cells Rouleaux Present A ESR VBG Lactic Acid Sodium Potassium Chloride Anion Gap BUN Creatinine Glucose Uric Acid Calcium Phosphorus Magnesium GGT AST Lactate Dehydrogenase C-Reactive Protein 6.2 H Albumin Globulin Albumin/Globulin Ratio Urine Protein 30 A Urine Occult Blood 0.2 A Ur Leukocyte Esterase 25 A Urine RBC 147 H Urine WBC 11 H Urine Bacteria Mod A Hyaline Casts 6 H 03/11/19 03/11/19 03/11/19 14:23 14:23 14:23 WBC RBC Hgb Hct MCH MCHC RDW Plt Count Nucleated RBCs Platelet Estimate RBC Morphology Polychromasia Hypochromasia Poikilocytosis Basophilic Stippling Anisocytosis Target Cells Helmet Cells Rouleaux ESR > 120 H VBG Lactic Acid 3.9 H Sodium 146 H Potassium Chloride Anion Gap BUN 40 H Creatinine 1.7 H Glucose 143 H Uric Acid Calcium Phosphorus Magnesium GGT AST 85 H Lactate Dehydrogenase C-Reactive Protein Albumin Globulin 4.8 H Albumin/Globulin Ratio 0.7 L Urine Protein Urine Occult Blood Ur Leukocyte Esterase Urine RBC Urine WBC Urine Bacteria Hyaline Casts 03/11/19 14:23 WBC 16.6 H RBC 2.74 L Hgb 6.9 L* Hct 23.0 L MCH 25.2 L MCHC 30.0 L RDW 18.0 H Plt Count 616 H Nucleated RBCs 1 H Platelet Estimate Increased A RBC Morphology Abnorm A Polychromasia 1+ A Hypochromasia 1+ A Poikilocytosis Basophilic Stippling 1+ A Anisocytosis 1+ A Target Cells 1+ A Helmet Cells Few A Rouleaux ESR VBG Lactic Acid Sodium Potassium Chloride Anion Gap BUN Creatinine Glucose Uric Acid Calcium Phosphorus Magnesium GGT AST Lactate Dehydrogenase C-Reactive Protein Albumin Globulin Albumin/Globulin Ratio Urine Protein Urine Occult Blood Ur Leukocyte Esterase Urine RBC Urine WBC Urine Bacteria Hyaline Casts Meds: Medications Acetaminophen (Tylenol) 650 mg PO Q4-6HP PRN PRN Reason: PAIN/FEVER > 101 Docusate Sodium (Colace) 100 mg PO BID [facility] Last Admin: 03/13/19 07:10 Dose: Not Given Documented by: Heparin Sodium (Porcine) (Heparin) 5,000 unit SQ Q12 [facility] Last Admin: 03/13/19 10:07 Dose: 5,000 unit Documented by: Magnesium Sulfate (Magnesium Sulfate) 2 gm in 50 mls @ 50 mls/hr IV UD PRN PRN Reason: MG = or < 1.7 Acetaminophen (Ofirmev) 1,000 mg in 100 mls @ 200 mls/hr IV Q6HP PRN PRN Reason: PAIN/FEVER > 101 Last Infusion: 03/13/19 00:31 Dose: Infused Documented by: Piperacillin Sod/Tazobactam (Sod 3.375 gm/ Dextrose) 50 mls @ 100 mls/hr IV Q6H [facility]; Protocol Last Infusion: 03/13/19 05:54 Dose: Infused Documented by: Vancomycin HCl 1,500 mg/ (Sodium Chloride) 500 mls @ 333.3 mls/hr IV Q24H [facility] Last Infusion: 03/12/19 22:48 Dose: Infused Documented by: Dextrose/Sodium Chloride (Dextrose 5%-1/2ns Iv Solution) 1,000 mls @ 50 mls/hr IV .Q20H [facility] Stop: 03/15/19 00:29 Last Admin: 03/13/19 10:02 Dose: 50 mls/hr Documented by: Ondansetron HCl (Zofran) 4 mg IV Q4-6HP PRN PRN Reason: Nausea And Vomiting Potassium Chloride (Klor-Con) 40 meq PO DAILYP PRN PRN Reason: K+ < 3.5 Senna/Docusate Sodium (Senna Plus Tablet) 1 tab PO HS [facility] Last Admin: 03/12/19 22:49 Dose: Not Given Documented by: Sodium Chloride (Saline Flush) 10 ml IV Q8 [facility] Last Admin: 03/13/19 05:52 Dose: Not Given Documented by: Vancomycin HCl (Vancomycin Per Pharmacy) 1 order IV UD [facility]; Protocol Medical - PN: A/P - Time Spent With Patient Total time spent is greater than 50% in coordination of care (as documented) at patient's floor/unit and/or counseling patient: 25 - 35 minutes (1) Change in mental status Status: Acute Assessment and plan: * Acute change in mental status-toxic metabolic. Patient remains obtunded without any improvement. Underlying hydrocephalus/sepsis end organ manifestation/hypernatremia. * Sepsis-worsening leukocytosis at 19.5 likely source infected pressure ulcer/UTI. Continue antibiotic coverage. * Complicated UTI-continuing antibiotic coverage * Stage III infected pressure ulcer -Continue wound care/offloading/antibiotics. * Acute blood loss anemia-continue IV PPI/hemoglobin 8.9 status post 2 units PRBC transfusion/family refusing endoscopy evaluation. Discontinue serial hemoglobin * Hypernatremia-switched to D5 half normal saline * Tachybradycardia syndrome-patient POA son wants DNR. Currently on monitoring specialist, atropine if symptomatic * Hydrocephalus-neurosurgery recommended follow-up as outpatient on discharge is no acute intervention indicated * Acute on chronic kidney failure-avoid nephrotoxins/monitor creatinine. Likely secondary to sepsis end organ dysfunction * Metastatic cancer of unknown etiology * History of prostate cancer * Prophylaxis heparin * DNR Plan * Await further family recommendations for possible transition to end of life care * Continue existing treatment including antibiotics * Wound care wound care for stage III pressure ulcer * Pre-existing medical condition management on home meds Current Visit: Yes
[2019-03-13] MEDS ORDERED: LORazepam 2 MG/ML VIAL IV PRN (13:36)
[2019-03-13] MEDS ORDERED: HYDROmorphone 2 MG/ML VIAL IV PRN (13:36)
[2019-03-13] MEDS ORDERED: ONDANSETRON 4 MG/2 ML VIAL IV PRN (13:36)
[2019-03-13] MEDS ORDERED: 0.9 % SODIUM CHLORIDE 10 ML SYRINGE IV SCH (14:00)
--- NOTE | 2019-03-13 19:04 | Death Note ---
Discharge Sum: Prov - Provider Patient information: Note initiated : 03/13/19 at 7:02 pm Service Date, if different from initiated Date: [] Patient: Gamal Boone 88 y/o M admitted on 03/11/19 for Weakness, Confusion. Chief Complaint: [] Primary care physician: Osvaldo Hopper Admitting clinician: Leon Garza Consults: 03/11/19 Consult to Physician [CONS] Stat Comment: Consulting Provider: Leon Garza Reason For Exam: Physician to Consult 03/11/19 18:49 Consult to Physician [CONS] Stat Comment: Consulting Provider: Jarocho Davis Reason For Exam: Physician to Consult Discharge Sum: Diag - Contributing Factors (1) Change in mental status * Sepsis * Complicated UTI * Stage III infected pressure ulcer -Continue wound care/offloading/antibiotics * Metastatic cancer Discharge Sum: Summary - Date and Time Date of admission: 03/11/19 19:25 Date of : 03/13/19 Time of : 16:26 - Additional Data Confirmation of as documented by pronouncing clinician: no pulse, no respirations, no heart sounds, pupils fixed and dilated Family: attempt made Attending physician: Leon Garza Was code activated?: No Autopsy requested?: No insurance claims examiner notified?: No Organ bank notified?: No Advance directives?: No Hospice patient?: No
[2019-03-13] MEDS ORDERED: DOCUSATE SODIUM 100 MG CAPSULE PO SCH (21:00)
== END 2019-03-13 16:26 | disposition expired | DRG 871 ==
LOC: ED 13:59 → ICU 19:25 → MEDSUR 03-13 12:57
PROVIDERS: ADMIT Internal Medicine; ATTEND Internal Medicine